=== PATIENT | female | born 1970 | race American Indian/Alaskan Native ===

== ENCOUNTER 2017-05-09 09:08 | Outpatient (CLI) | payer BC ==
--- NOTE | 2017-05-09 11:15 | Mammography Report ---
BILATERAL DIGITAL SCREENING MAMMOGRAM with CAD: 05/09/17 CLINICAL: Routine screening. COMPARISON:None available. However, a prior mammogram was apparently done at [facility]. FINDINGS: The breasts are heterogeneously dense, which may obscure small masses. Left asymmetries on MLO and exaggerated CC views require comparison with a prior mammogram or additional imaging of the left breast.No architectural distortion or suspicious calcifications.The right breast is negative. IMPRESSION: Left asymmetries requiring further evaluation. BI-RADS CATEGORY: 0 -- Additional Evaluation Required RECOMMENDATION: Comparison with a previous mammogram. We will attempt to obtain a prior mammogram from [facility]. If we do not obtain a prior mammogram for comparison within 30 days, a revised report will be issued recommending a recall for additional imaging. Please be advised that the patient should not schedule an appointment for return until adequate time (at least 2 weeks) has passed for us to obtain the prior mammogram. ACR BI-RADS MAMMOGRAPHIC CODES: 0 = Needs additional imaging evaluation; 1 = Negative; 2 = Benign; 3 = Probably benign; 4 = Suspicious; 5 = Malignant; 6 = Known biopsy-proven malignancy COMMENT: 1. Dense breast tissue, i.e., adenosis, fibrocystic changes, etc., may obscure an underlying neoplasm. 2. Approximately 10% of cancers are not detected with mammography. 3. A negative mammography report should not delay biopsy if a clinically suspicious mass is present. COMMENT: Patient follow-up letters are generated via our [facility] application.
== END 2017-05-09 09:09 | disposition home or self-care (01) ==
LOC: SPVWC 09:08
PROVIDERS: ATTEND General Practice
DX: Z12.31 Encounter for screening mammogram for malignant neoplasm of breast (principal); I10 Essential (primary) hypertension
CPT/HCPCS: 77067; G0202

== ENCOUNTER 2017-05-26 21:30 | Emergency (ER) | payer BC ==
[2017-05-26 23:06] LABS: Hematocrit 36.1 % (30.3-42.9); Hemoglobin 11.4 gm/dl (10.1-14.3); Mean Corpuscular HGB Conc 31 % (30-34); Mean Corpuscular Hemoglobin 28 pg (28-32); Mean Corpuscular Volume 88 fl (79-97); Red Blood Count 4.08 M/mm3 (3.65-5.03); White Blood Count 9.6 K/mm3 (4.5-11.0)
[2017-05-26 23:07] LABS: Basophils % (Auto) 0.9 % (0.0-1.8); Eosinophils % (Auto) 1.7 % (0.0-4.3); Platelet Count 214 K/mm3 (140-440); Red Cell Distribution Width 14.7 % (13.2-15.2)
[2017-05-26 23:39] LABS: Anion Gap 11 mmol/L; Blood Urea Nitrogen 10 mg/dL (7-17); Calcium 9.2 mg/dL (8.4-10.2); Carbon Dioxide 34 mmol/L (22-30); Chloride 98.3 mmol/L (98-107); Glucose 84 mg/dL (65-100); Potassium 3.5 mmol/L (3.6-5.0); Sodium 140 mmol/L (137-145)
[2017-05-27 00:09] LABS: Bilirubin,Urine NEG (Negative); Blood,Urine NEG (Negative); Ketones,Urine NEG (Negative); Leukocyte Esterase,Urine NEG (Negative); Mucus,Urine FEW /HPF; Nitrite,Urine NEG (Negative); Protein,Urine <15 mg/dL mg/dL (Negative)
[2017-05-27] MEDS ORDERED: ZOFRAN ODT PO ONE (02:18)
--- NOTE | 2017-05-27 02:23 | Emergency Department Report ---
ED Chest Pain HPI - General Chief Complaint: Dizziness Stated Complaint: NAUSEA/DIZZINESS Time Seen by Provider: 05/27/17 02:03 Source: patient Mode of arrival: Ambulatory Limitations: No Limitations - History of Present Illness Initial Comments: 47-year-old female presents to the emergency department complaining of chest pain. Patient states that at approximately 4 PM this afternoon, she developed dizziness with associated nausea and vomiting. Dizziness was described as room spinning. After she vomited 2 times, she began having chest pain. Her chest pain is described as a numb feeling in the upper part of her chest. His pain does not radiate. She reports mild difficulty breathing with the pain. Pain is worse with deep inspiration. Patient is continuing to complain of nausea. There are no other complaints. MD Complaint: chest pain -: Sudden, This afternoon Time: 17:00 Onset: during rest Pain Location: substernal Pain Radiation: none Severity: severe Severity scale (0 -10): 8 Quality: other ("numbness") Consistency: constant Improves With: nothing Worsens With: inspiration re: nausea, vomting, dyspnea. denies: diaphoresis Other Symptoms: other (dizziness) Treatments Prior to Arrival: none Aspirin use within the Past 7 Days: (0) No - Related Data Home Medications Medication Instructions Recorded Confirmed Last Taken Lisinopril/Hydrochlorothiazide 1 tab PO QDAY 10/24/15 12/16/15 12/15/15 21:00 [Zestoretic 20-12.5 mg] Previous Rx's Medication Instructions Recorded Last Taken Type Meclizine [Antivert] 25 mg PO TID PRN #20 tablet 05/27/17 Unknown Rx Naproxen [Naprosyn] 500 mg PO BID #30 tablet 05/27/17 Unknown Rx Promethazine [Phenergan TAB] 25 mg PO Q6HR PRN #14 tab 05/27/17 Unknown Rx Allergies Allergy/AdvReac Type Severity Reaction Status Date / Time cefuroxime axetil Allergy Shortness Verified 10/24/15 12:51 [From Ceftin] of Breath Heart Score - HEART Score History: Slightly suspicious EKG: Normal Age: 45-65 Risk factors: 1-2 risk factors Troponin: < normal limit HEART Score: 2 ED Review of Systems ROS: Stated complaint: NAUSEA/DIZZINESS Other details as noted in HPI Comment: All other systems reviewed and negative Respiratory: shortness of breath Cardiovascular: chest pain Gastrointestinal: nausea, vomiting Neurological: as per HPI (dizziness) ED Past Medical Hx - Past Medical History Previous Medical History?: Yes Hx Hypertension: Yes (Lisinopril/HCTZ) Hx Heart Attack/AMI: No Hx Seizures: No Hx Asthma: No Hx COPD: No - Surgical History Past Surgical History?: Yes Hx Cholecystectomy: Yes Additional Surgical History: x 3 - Family History Family history: no significant - Social History Smoking Status: Never Smoker Substance Use Type: None - Medications Home Medications: Home Medications Medication Instructions Recorded Confirmed Last Taken Type Lisinopril/Hydrochlorothiazide 1 tab PO QDAY 10/24/15 12/16/15 12/15/15 21:00 History [Zestoretic 20-12.5 mg] Meclizine [Antivert] 25 mg PO TID PRN #20 tablet 05/27/17 Unknown Rx Naproxen [Naprosyn] 500 mg PO BID #30 tablet 05/27/17 Unknown Rx Promethazine [Phenergan TAB] 25 mg PO Q6HR PRN #14 tab 05/27/17 Unknown Rx ED Physical Exam - General Limitations: No Limitations General appearance: alert, in no apparent distress - Head Head exam: Present: atraumatic, normocephalic - Eye Eye exam: Present: normal appearance, PERRL, EOMI - ENT ENT exam: Present: normal exam, normal orophraynx, mucous membranes moist - Neck Neck exam: Present: normal inspection, full ROM. Absent: tenderness - Respiratory Respiratory exam: Present: normal lung sounds bilaterally, chest wall tenderness (tenderness to palpation of the left upper anterior chest wall). Absent: respiratory distress - Cardiovascular Cardiovascular Exam: Present: regular rate, normal rhythm, normal heart sounds - GI/Abdominal GI/Abdominal exam: Present: soft, normal bowel sounds. Absent: distended, tenderness - Extremities Exam Extremities exam: Present: normal inspection, full ROM. Absent: tenderness - Back Exam Back exam: Present: normal inspection, full ROM. Absent: tenderness - Neurological Exam Neurological exam: Present: alert, oriented X3. Absent: motor sensory deficit - Skin Skin exam: Present: warm, dry, intact ED Course Vital Signs 05/26/17 05/27/17 05/27/17 21:40 01:45 03:42 Temperature 98 F 98.4 F Pulse Rate 68 61 Respiratory 18 18 16 Rate Blood Pressure 118/73 Blood Pressure 118/73 136/88 [Left] O2 Sat by Pulse 100 100 Oximetry ED Medical Decision Making - Lab Data Result diagrams: 05/26/17 22:03 05/26/17 22:39 - EKG Data -: EKG Interpreted by Me EKG shows normal: sinus rhythm, axis, intervals, QRS complexes, ST-T waves Rate: normal - EKG Data When compared to previous EKG there are: previous EKG unavailable Interpretation: normal EKG - Medical Decision Making Lab results reviewed and discussed with the patient. Patient reports feeling better with medications. Patient will be discharged home at this time to follow up with her primary care physician. - Differential Diagnosis vertigo, chest wall pain, atypical chest pain Critical care attestation.: If time is entered above; I have spent that time in minutes in the direct care of this critically ill patient, excluding procedure time. ED Disposition Clinical Impression: Vertigo, Chest wall pain Disposition: - TO HOME OR SELFCARE Is pt being admited?: No Condition: Stable Instructions: Chest Pain (ED), Vertigo (ED) Prescriptions: Meclizine [Antivert] 25 mg PO TID PRN #20 tablet PRN Reason: Vertigo Naproxen [Naprosyn] 500 mg PO BID #30 tablet Promethazine [Phenergan TAB] 25 mg PO Q6HR PRN #14 tab PRN Reason: Nausea Referrals: PRIMARY CARE, [Primary Care Provider] - 3-5 Days Time of Disposition: 03:57
[2017-05-27 03:43] VITALS: BP 136/88
== END 2017-05-27 04:30 | disposition home or self-care (01) ==
LOC: ED 21:30
DX: R07.89 Other chest pain (principal); R42 Dizziness and giddiness; I10 Essential (primary) hypertension; Z88.8 Allergy status to other drugs, medicaments and biological substances
CPT/HCPCS: 36415; 80048; 81001; 84484; 84703; 85025; 93005; 93010; 99283; Q0162

== ENCOUNTER 2017-08-08 10:32 | Emergency (ER) | payer BC ==
[2017-08-08] MEDS ORDERED: TYLENOL PO ONE (11:08)
[2017-08-08] MEDS ORDERED: ZOFRAN ODT PO ONE (11:08)
--- NOTE | 2017-08-08 11:10 | Emergency Department Report ---
Chief Complaint: Headache Stated Complaint: Nausea and vomiting - HPI History of Present Illness: 47F PMH htn, hx of dvt pw c/o worsenign headache, LE swelling x2-3 days, malaise - ROS Review of Systems: hx of headache and dvt - Exam Vital Signs: Vital Signs 08/08/17 11:01 Temperature 98.4 F Pulse Rate 64 Respiratory 18 Rate Blood Pressure 126/71 O2 Sat by Pulse 100 Oximetry Physical Exam: + 2-3 pitting edema both LE MSE screening note: Focused history and physical exam performed. Due to findings the following was ordered: mse: le swelling, headache, nausea 1- LE swelling, LE duplex, basic labs ED Disposition for MSE Condition: Stable
[2017-08-08] MEDS ORDERED: ZOFRAN ODT ONE (11:13)
[2017-08-08] MEDS ORDERED: TYLENOL ONE (11:13)
[2017-08-08 11:38] LABS: Basophils % (Auto) 1.2 % (0.0-1.8); Eosinophils % (Auto) 1.5 % (0.0-4.3); Hematocrit 38.2 % (30.3-42.9); Mean Corpuscular HGB Conc 31 % (30-34); Mean Corpuscular Hemoglobin 27 pg (28-32); Mean Corpuscular Volume 86 fl (79-97); Platelet Count 230 K/mm3 (140-440); Red Blood Count 4.43 M/mm3 (3.65-5.03); Red Cell Distribution Width 14.1 % (13.2-15.2); White Blood Count 6.8 K/mm3 (4.5-11.0)
[2017-08-08 12:05] LABS: Anion Gap 19 mmol/L; BUN/Creatinine Ratio 16.25; Blood Urea Nitrogen 13 mg/dL (7-17); Calcium 9.1 mg/dL (8.4-10.2); Carbon Dioxide 22 mmol/L (22-30); Chloride 104.7 mmol/L (98-107); Glucose 85 mg/dL (65-100); Potassium 3.1 mmol/L (3.6-5.0); Sodium 143 mmol/L (137-145)
[2017-08-08 19:28] LABS: Bilirubin,Urine NEG (Negative); Blood,Urine NEG (Negative); Ketones,Urine NEG (Negative); Leukocyte Esterase,Urine NEG (Negative); Mucus,Urine FEW /HPF; Nitrite,Urine NEG (Negative); Protein,Urine <15 mg/dL mg/dL (Negative); Urobilinogen,Urine < 2.0 mg/dL (<2.0)
[2017-08-08] MEDS ORDERED: K-DUR PO ONE (20:24)
--- NOTE | 2017-08-08 20:25 | Emergency Department Report ---
ED General Adult HPI - General Chief complaint: Headache Stated complaint: Nausea and vomiting Time Seen by Provider: 08/08/17 20:23 Source: patient, RN notes reviewed Mode of arrival: Ambulatory Limitations: No Limitations - History of Present Illness Initial comments: This is a 47-year-old female who was previously unknown to this provider. 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 She is not currently on systemic anticoagulation, and she is not taking any control tablets. She presents to the ER with 2 complaints. The patient's first complaint is headache. Headache is left-sided, throbbing and "thumping." It started , today is Tuesday. The headache is not of sudden or thunderclap in nature, it did not reach maximal intensity within an hour, and is not the worse headache of her life. There is no neck pain or neck stiffness, there is no sore throat, there is no loss of vision, there is no focal extremity weakness/numbness. The patient next complaints is bilateral lower extremity swelling. It is painless. There is no trauma. There is no chest pain or shortness of breath. No recent trips greater than 4 hours, no recent hospital admissions. The swelling will vary, and worsens with the patient stands up, and improves when she sits down. -: Gradual Location: head, left, right, lower extremity Severity scale (0 -10): 10 Quality: aching Consistency: intermittent Improves with: none Worsens with: none Associated Symptoms: denies other symptoms, headaches, nausea/vomiting (patient complained of nausea and vomiting with headache, this is resolved prior to my evaluation with antinausea medication.) - Related Data Home Medications Medication Instructions Recorded Confirmed Last Taken Lisinopril/Hydrochlorothiazide 25 mg PO QDAY 10/24/15 08/08/17 08/07/17 [Zestoretic 20-12.5 mg] Previous Rx's Medication Instructions Recorded Last Taken Type Acetaminophen [Tylenol Arthritis] 650 mg PO Q6HR PRN #30 tablet.er 08/08/17 Unknown Rx Ibuprofen [Motrin] 600 mg PO Q8H PRN #30 tablet 08/08/17 Unknown Rx Metoclopramide [Reglan] 10 mg PO QID PRN #30 tablet 08/08/17 Unknown Rx Allergies Allergy/AdvReac Type Severity Reaction Status Date / Time cefuroxime axetil Allergy Shortness Verified 10/24/15 12:51 [From Ceftin] of Breath ED Review of Systems ROS: Stated complaint: Nausea and vomiting Other details as noted in HPI Constitutional: denies: fever Eyes: denies: eye discharge, vision change ENT: denies: epistaxis Respiratory: denies: cough Cardiovascular: denies: chest pain Gastrointestinal: nausea, vomiting Genitourinary: denies: dysuria Musculoskeletal: back pain, arthralgia Skin: denies: lesions Neurological: headache ED Past Medical Hx - Past Medical History Hx Hypertension: Yes (Lisinopril/HCTZ) Hx Heart Attack/AMI: No Hx Seizures: No Hx Asthma: No Hx COPD: No - Surgical History Hx Cholecystectomy: Yes Additional Surgical History: x 3 - Social History Smoking Status: Never Smoker Substance Use Type: None - Medications Home Medications: Home Medications Medication Instructions Recorded Confirmed Last Taken Type Lisinopril/Hydrochlorothiazide 25 mg PO QDAY 10/24/15 08/08/17 08/07/17 History [Zestoretic 20-12.5 mg] Acetaminophen [Tylenol Arthritis] 650 mg PO Q6HR PRN #30 tablet.er 08/08/17 Unknown Rx Ibuprofen [Motrin] 600 mg PO Q8H PRN #30 tablet 08/08/17 Unknown Rx Metoclopramide [Reglan] 10 mg PO QID PRN #30 tablet 08/08/17 Unknown Rx ED Physical Exam - General Limitations: No Limitations General appearance: alert, in no apparent distress - Head Head exam: Present: atraumatic, normocephalic - Eye Eye exam: Present: normal appearance, EOMI, other (visual acuity intact to finger counting, color perception, reading at a close distance). Absent: nystagmus - ENT ENT exam: Present: normal exam, normal orophraynx, mucous membranes moist, TM's normal bilaterally, normal external ear exam, other (there is no mastoid tenderness. There is no temporal tenderness.) - Neck Neck exam: Present: normal inspection, full ROM. Absent: tenderness, meningismus - Respiratory Respiratory exam: Present: normal lung sounds bilaterally. Absent: respiratory distress, wheezes, rales, rhonchi, stridor, chest wall tenderness, accessory muscle use, decreased breath sounds, prolonged expiratory - Cardiovascular Cardiovascular Exam: Present: regular rate, normal rhythm, normal heart sounds. Absent: bradycardia, tachycardia, irregular rhythm, systolic murmur, diastolic murmur, rubs, gallop - GI/Abdominal GI/Abdominal exam: Present: soft, normal bowel sounds. Absent: distended, tenderness, guarding, rebound, rigid, pulsatile mass - Extremities Exam Extremities exam: Present: normal inspection, full ROM, normal capillary refill , pedal edema, other (2+ pitting edema is noted in the bilateral lower extremities). Absent: calf tenderness - Back Exam Back exam: Present: normal inspection, full ROM. Absent: tenderness, CVA tenderness (R), CVA tenderness (L), muscle spasm, paraspinal tenderness, vertebral tenderness - Neurological Exam Neurological exam: Present: alert, oriented X3, normal gait (there is no past- pointing. Normal [id number]. Negative Romberg examination. Negative pronator drift.), other (Extraocular movements intact. Tongue midline. No facial droop. Facial sensation intact to light touch in the V1, V2, V3 distribution bilaterally. 5 and 5 strength in 4 extremities.. Sensation is intact to light touch in 4 extremities.). Absent: motor sensory deficit - Psychiatric Psychiatric exam: Present: normal affect, normal mood - Skin Skin exam: Present: warm, dry, intact, normal color. Absent: rash ED Course Vital Signs 08/08/17 08/08/17 08/08/17 11:01 18:29 18:30 Temperature 98.4 F Pulse Rate 64 56 L 60 Respiratory 18 11 L 11 L Rate Blood Pressure 126/71 Blood Pressure [Left] O2 Sat by Pulse 100 98 Oximetry 08/08/17 08/08/17 08/08/17 18:38 18:46 19:00 Temperature 98.9 F Pulse Rate 54 L 56 L 61 Respiratory 12 18 14 Rate Blood Pressure 129/77 129/77 129/77 Blood Pressure 123/77 [Left] O2 Sat by Pulse 100 100 99 Oximetry 08/08/17 08/08/17 08/08/17 19:14 19:16 19:30 Temperature Pulse Rate 63 55 L Respiratory 18 12 11 L Rate Blood Pressure 128/73 128/73 Blood Pressure [Left] O2 Sat by Pulse 99 100 100 Oximetry 08/08/17 08/08/17 08/08/17 19:46 20:00 20:16 Temperature Pulse Rate 61 64 64 Respiratory 14 14 10 L Rate Blood Pressure 128/73 128/73 119/67 Blood Pressure [Left] O2 Sat by Pulse 100 98 100 Oximetry 08/09/17 01:56 Temperature Pulse Rate 91 H Respiratory 17 Rate Blood Pressure 119/67 Blood Pressure [Left] O2 Sat by Pulse Oximetry - Reevaluation(s) Reevaluation #1: 08/08/17 21:45 Patient is saturating well, no crackles or rales, no physical exam findings to suggest congestive heart failure. Therefore chest x-ray is not emergently required at this time. ED Medical Decision Making - Lab Data Result diagrams: 08/08/17 11:11 08/08/17 11:11 Vital Signs 08/08/17 08/08/17 08/08/17 11:01 18:29 18:30 Temperature 98.4 F Pulse Rate 64 56 L 60 Respiratory 18 11 L 11 L Rate Blood Pressure 126/71 Blood Pressure [Left] O2 Sat by Pulse 100 98 Oximetry 08/08/17 08/08/17 18:38 19:14 Temperature 98.9 F Pulse Rate 56 L Respiratory 18 18 Rate Blood Pressure Blood Pressure 123/77 [Left] O2 Sat by Pulse 100 99 Oximetry Lab Results 08/08/17 08/08/17 08/08/17 Range/Units 11:11 11:11 11:11 WBC 6.8 (4.5-11.0) K/mm3 RBC 4.43 (3.65-5.03) M/mm3 Hgb 12.0 (10.1-14.3) gm/dl Hct 38.2 (30.3-42.9) % MCV 86 (79-97) fl MCH 27 L (28-32) pg MCHC 31 (30-34) % RDW 14.1 (13.2-15.2) % Plt Count 230 (140-440) K/mm3 Lymph % (Auto) 28.1 (13.4-35.0) % Wilkin % (Auto) 5.8 (0.0-7.3) % Eos % (Auto) 1.5 (0.0-4.3) % Baso % (Auto) 1.2 (0.0-1.8) % Lymph # 1.9 (1.2-5.4) K/mm3 Wilkin # 0.4 (0.0-0.8) K/mm3 Eos # 0.1 (0.0-0.4) K/mm3 Baso # 0.1 (0.0-0.1) K/mm3 Seg Neutrophils % 63.4 (40.0-70.0) % Seg Neutrophils # 4.3 (1.8-7.7) K/mm3 Sodium 143 (137-145) mmol/L Potassium 3.1 L (3.6-5.0) mmol/L Chloride 104.7 (98-107) mmol/L Carbon Dioxide 22 (22-30) mmol/L Anion Gap 19 mmol/L BUN 13 (7-17) mg/dL Creatinine 0.8 (0.7-1.2) mg/dL Estimated GFR > 60 ml/min BUN/Creatinine Ratio 16.25 % Glucose 85 (65-100) mg/dL Calcium 9.1 (8.4-10.2) mg/dL Total Creatine Kinase 125 (30-135) units/L NT-Pro-B Natriuret Pep 270.4 (0-450) pg/mL HCG, Qual (Negative) Urine Color (Yellow) Urine Turbidity (Clear) Urine pH (5.0-7.0) Ur Specific Fenton (1.003-1.030) Urine Protein (Negative) mg/dL Urine Glucose (UA) (Negative) mg/dL Urine Ketones (Negative) mg/dL Urine Blood (Negative) Urine Nitrite (Negative) Urine Bilirubin (Negative) Urine Urobilinogen (<2.0) mg/dL Ur Leukocyte Esterase (Negative) Urine WBC (Auto) (0.0-6.0) /HPF Urine RBC (Auto) (0.0-6.0) /HPF U Epithel Cells (Auto) (0-13.0) /HPF Urine Mucus /HPF 08/08/17 08/08/17 Range/Units 12:01 18:31 WBC (4.5-11.0) K/mm3 RBC (3.65-5.03) M/mm3 Hgb (10.1-14.3) gm/dl Hct (30.3-42.9) % MCV (79-97) fl MCH (28-32) pg MCHC (30-34) % RDW (13.2-15.2) % Plt Count (140-440) K/mm3 Lymph % (Auto) (13.4-35.0) % Wilkin % (Auto) (0.0-7.3) % Eos % (Auto) (0.0-4.3) % Baso % (Auto) (0.0-1.8) % Lymph # (1.2-5.4) K/mm3 Wilkin # (0.0-0.8) K/mm3 Eos # (0.0-0.4) K/mm3 Baso # (0.0-0.1) K/mm3 Seg Neutrophils % (40.0-70.0) % Seg Neutrophils # (1.8-7.7) K/mm3 Sodium (137-145) mmol/L Potassium (3.6-5.0) mmol/L Chloride (98-107) mmol/L Carbon Dioxide (22-30) mmol/L Anion Gap mmol/L BUN (7-17) mg/dL Creatinine (0.7-1.2) mg/dL Estimated GFR ml/min BUN/Creatinine Ratio % Glucose (65-100) mg/dL Calcium (8.4-10.2) mg/dL Total Creatine Kinase (30-135) units/L NT-Pro-B Natriuret Pep (0-450) pg/mL HCG, Qual Negative (Negative) Urine Color Yellow (Yellow) Urine Turbidity Clear (Clear) Urine pH 6.0 (5.0-7.0) Ur Specific Fenton 1.024 (1.003-1.030) Urine Protein <15 mg/dl (Negative) mg/dL Urine Glucose (UA) Neg (Negative) mg/dL Urine Ketones Neg (Negative) mg/dL Urine Blood Neg (Negative) Urine Nitrite Neg (Negative) Urine Bilirubin Neg (Negative) Urine Urobilinogen < 2.0 (<2.0) mg/dL Ur Leukocyte Esterase Neg (Negative) Urine WBC (Auto) 1.0 (0.0-6.0) /HPF Urine RBC (Auto) 2.0 (0.0-6.0) /HPF U Epithel Cells (Auto) 3.0 (0-13.0) /HPF Urine Mucus Few /HPF - Radiology Data Radiology results: report reviewed interpreted by me: [facility] : 1970 [facility]# [id number] 08/08/17 11:52 - Radiology Dept. Note by SWE[facility] Num: [id number] : 1970 Patient Age: 47 VASCULAR LAB.PRELIMINARY REPORT.BLE VENOUS DUPLEX DONE.NO EVIDENCE OF DVT/SVT IN VESSELS VISUALIZED. Initialized on 08/08/17 11:52 - END OF NOTE - Medical Decision Making Differential diagnosis: Migraine headache, tension headache, cluster headache, DVT, congestive heart failure, dependent edema, venous insufficiency Assessment and plan: 47-year-old female with multiple nonemergent complaints. Lower extremity DVTs excluded through the vascular lab study. Has a GCS of 15, with an NIH score of 0, walks with a steady gait, and is clinically sober. Headache by history and physical exam does not appear to be dangerous or life-threatening, and she can follow up with an outpatient primary care doctor. The patient is encouraged to purchase compression stockings for her dependent edema. Critical care attestation.: If time is entered above; I have spent that time in minutes in the direct care of this critically ill patient, excluding procedure time. ED Disposition Clinical Impression: Headache, Swelling of lower extremity Disposition: DC-01 TO HOME OR SELFCARE Is pt being admited?: No Does the pt Need Aspirin: No Condition: Stable Instructions: Acute Headache (ED), Leg Edema (ED) Additional Instructions: Take Tylenol every 4 hours as needed for headache, this can be alternated with ibuprofen, 600 mg with food every 6 hours for headache. These medications can be taken his last purchased [id number]. Take the Reglan medication also as needed for nausea/vomiting/headache. Purchased [id number] compression stockings/pantyhose to assist with lower extremity swelling. Follow-up with the primary care doctor within the next month. Return to the ER right away with fevers, chills, chest pain, shortness of breath, intractable nausea or vomiting, inability to tolerate liquid feeds, confusion. Prescriptions: Acetaminophen [Tylenol Arthritis] 650 mg PO Q6HR PRN #30 tablet.er PRN Reason: Pain Ibuprofen [Motrin] 600 mg PO Q8H PRN #30 tablet PRN Reason: Pain Metoclopramide [Reglan] 10 mg PO QID PRN #30 tablet PRN Reason: Nausea Referrals: HAZEL BRUCE MD [Primary Care Provider] - 3-5 Days Forms: Work/School Release Form(ED)
[2017-08-08] MEDS ORDERED: REGLAN PO ONE (20:31)
[2017-08-08] MEDS ORDERED: MOTRIN PO ONE (20:31)
[2017-08-08] MEDS ORDERED: XYLOCAINE TOPICAL 4% TP ONE (20:32)
[2017-08-09 03:57] VITALS: BP 119/67
--- NOTE | 2017-08-10 07:45 | Vascular Lab Report ---
LOWER EXTREMITY VENOUS DUPLEX: REASON FOR EXAM: Swelling of the lower extremities. COMMENTS ON THE RIGHT: All veins visualized are freely compressible without evidence of internal echogenicity. Flow is spontaneous and phasic throughout. COMMENTS ON THE LEFT: All veins visualized are freely compressible without evidence of internal echogenicity. Flow is spontaneous and phasic throughout. IMPRESSION: No evidence of acute or chronic deep venous thrombosis in either lower extremity.
== END 2017-08-09 00:30 | disposition home or self-care (01) ==
LOC: ED 10:32
DX: R51 Headache (principal); R22.41 Localized swelling, mass and lump, right lower limb; R22.42 Localized swelling, mass and lump, left lower limb; I10 Essential (primary) hypertension; Z88.8 Allergy status to other drugs, medicaments and biological substances
CPT/HCPCS: 36415; 80048; 81001; 82550; 83735; 83880; 84703; 85025; 93970; Q0162

== ENCOUNTER 2021-07-14 05:51 | Observation (INO) | payer BC ==
--- NOTE | 2021-07-13 10:08 | Anesthesia Consultation ---
Anesthesia Consult and Med Hx Date of service: 07/13/21 - Airway Anesthetic Teeth Evaluation: Good ROM Head & Neck: Adequate Mental/Hyoid Distance: Adequate Mallampati Class: Class III Intubation Access Assessment: Possibly Difficult - Pulmonary Exam CTA: Yes - Cardiac Exam Cardiac Exam: RRR - Pre-Operative Health Status ASA Pre-Surgery Classification: ASA3 Proposed Anesthetic Plan: General Nerve Block: post op TAP if needed - Pulmonary Hx Smoking: No Hx Respiratory Symptoms: No Hx Sleep Apnea: Yes (occasional CPAP) - Cardiovascular System Hx Hypertension: Yes Hx Heart Attack/AMI: No Hx Percutaneous Transluminal Coronary Angioplasty (PTCA): No Hx Cardia Arrhythmia: No Hx Peripheral Vascular Disease: No (hx DVT/PE 2009, 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
[2021-07-13 10:29] LABS: Hematocrit 32.5 % (30.3-42.9); Hemoglobin 10.5 gm/dl (10.1-14.3); Mean Corpuscular HGB Conc 32 % (30-34); Mean Corpuscular Volume 79 fl (79-97); Platelet Count 226 K/mm3 (140-440); Red Blood Count 4.11 M/mm3 (3.65-5.03); Red Cell Distribution Width 17.6 % (13.2-15.2)
[2021-07-13 10:49] LABS: BUN/Creatinine Ratio 11; Blood Urea Nitrogen 11 mg/dL (7-17); Calcium 9.3 mg/dL (8.4-10.2); Hemolysis Index 4
[2021-07-13 13:37] LABS: Hypochromasia 1+; Large Platelets Rare; Platelet Estimate Consistent w Auto; Total Cells Counted 100
[2021-07-14] MEDS ORDERED: CELECOXIB 200 MG CAP PO NR (06:00)
[2021-07-14] MEDS ORDERED: MIDAZOLAM 2 MG/2 ML INJ IV NR (06:00)
[2021-07-14] MEDS ORDERED: ACETAMINOPHEN 500 MG TAB PO SCH (06:00)
[2021-07-14] MEDS ORDERED: SCOPOLAMINE TRANSDERMAL PATCH 72 HR TD NR (06:00)
[2021-07-14] MEDS ORDERED: GABAPENTIN 300 MG CAP PO NR (06:00)
[2021-07-14] MEDS: LACTATED RINGERS 1,000 ML IV SCH ×2 (07:15→17:51)
[2021-07-14] MEDS ORDERED: propofoL 200 MG/20 ML VIAL IV ONE (07:24)
[2021-07-14] MEDS ORDERED: HYDROmorphone 1 MG/1 ML INJ ONE (07:24)
[2021-07-14] MEDS ORDERED: ROCURONIUM 50 MG/5 ML INJ IV ONE ×2 (07:24→10:11)
[2021-07-14] MEDS ORDERED: LIDOCAINE MPF (2%) 20 MG/1 ML VIAL 5 ML ONE (07:24)
[2021-07-14] MEDS ORDERED: ONDANSETRON 4 MG/2 ML INJ ONE (07:24)
[2021-07-14] MEDS ORDERED: HYDROmorphone 1 MG/1 ML INJ IV PRN (07:37)
[2021-07-14] MEDS ORDERED: ONDANSETRON 4 MG/2 ML INJ IV PRN ×2 (07:37→11:37)
--- NOTE | 2021-07-14 07:37 | Anesthesia Day of Surgery ---
Anesthesia Day of Surgery - Day of Surgery Patient Examined: Yes Patient H&P Reviewed: Yes Patient is NPO: Yes
[2021-07-14] MEDS ORDERED: SODIUM CHLORIDE 0.9% IRR 1,500 ML BOTTLE IR ONE (08:35)
[2021-07-14] MEDS ORDERED: WATER FOR IRRIG STERILE 2000 ML IR ONE (08:35)
[2021-07-14] MEDS ORDERED: SODIUM CHLORIDE 0.9% IRRIG SOLN 2000 ML IR ONE (09:00)
[2021-07-14] MEDS ORDERED: dexAMETHasone 20 MG/5 ML VIAL ONE (10:00)
[2021-07-14] MEDS ORDERED: LACTATED RINGERS 1,000 ML ONE (10:00)
[2021-07-14] MEDS ORDERED: GLYCOPYRROLATE 0.4 MG/2 ML INJ ONE (11:23)
[2021-07-14] MEDS ORDERED: NEOSTIGMINE 10MG/10 ML INJ MDV ONE (11:23)
[2021-07-14] MEDS ORDERED: KETOROLAC 30 MG/1 ML INJ ONE (11:29)
[2021-07-14] MEDS ORDERED: HYDROcodone/ACETAMINOPHEN 5-325 MG TAB PO PRN ×2 (11:37→12:06)
[2021-07-14] MEDS ORDERED: MORPHINE 4 MG/1 ML INJ IV PRN ×2 (11:37→12:06)
[2021-07-14] MEDS ORDERED: ACETAMINOPHEN 325 MG TAB PO PRN ×2 (11:37→12:06)
[2021-07-14] MEDS ORDERED: KETOROLAC 30 MG/1 ML INJ IV PRN ×2 (11:37→12:06)
[2021-07-14] MEDS ORDERED: IBUPROFEN 800 MG TAB PO PRN ×2 (11:37→12:06)
--- NOTE | 2021-07-14 11:52 | Operative Report ---
Operative Report Operative Report: Date of surgery: July 14, 2021 Admitting diagnosis: [Pelvic pain, abnormal uterine bleeding, enlarged uterus, peritoneal adhesions.] Postoperative diagnoses: Same. Peritoneal adhesions were limited to the area of the lower uterine segment and only made separation between the bladder and the uterus a bit of a challenge Procedure: Laparoscopically assisted vaginal hysterectomy, Bilateral Salpingo- oophorectomies, cystoscopy. Surgeon: Baltazar Goldstein MD Anesthesiologist: Marissa Zarco MD Ruby [employer] Rails Software Developer: Darrel Seymour CRNA Anesthesia: Gen. anesthesia EBL: 400 mL Complications: None Findings:Intraperitoneally, the fallopian tubes were noted to have been disrupted at a prior surgical session. Both ovaries were grossly normal. The uterus was bulky in size. The liver and the undersurface of the diaphragm were grossly normal. There were no other abnormalities observed within the peritoneal cavity. The vulva vagina and cervix were grossly normal. Procedure in details: The patient was taken to the operating room and was given a general anesthesia. The patient was then put in the lithotomy position and prepped in the vulva vagina and abdomen. The drapes were placed. A timeout was done. With the go ahead from the director of managed care, an indwelling Mari catheter was inserted. The cervix was stabilized with a single-tooth tenaculum forceps and an acorn,. At the navel, a stab incision was made. The Veress needle was inserted, making sure to point the tip of this instrument into the free hollow of the pelvis. The Veress needle was initially aspirated and no blood was drawn. The Veress needle was then flushed through with a small quantity of sterile normal saline without any resistance. The general peritoneal cavity was thereafter insufflated with 3.5 L of carbon dioxide. A 5 mm port with its trocar were inserted making sure again to point the tip of this instrument towards the free hollow of the pelvis. The laparoscope confirmed successful access to the peritoneal cavity subsequently. 2 additional 5 mm ports were placed one for each flank under guidance with the laparoscope. A general examination of the peritoneal cavity was done. The findings are reported above. The endoscopic ligasure was used to excise the the ovaries from the infundibulopelvic ligaments. The broad ligament was then divided from the round ligaments and close to the lateral aspects of the uterus all the way to the top of the cervix. The fallopian tubes remnants were included in the excised specimen. This was done for both sides. The J-hook Bovie was used to thermally coagulate the utero peritoneal flap over the cervix. This allowed the bladder to be displaced distally with the blunt probe. The procedure continued vaginally. The acorn cannula was removed. A circumferential incision was made in the ecto cervix distal to the palpated reflection of the urinary bladder. The bladder was then bluntly dissected off of the cervix using the Kitner. The anterior colpotomy was easily established allowed an angled retractor to be placed within the opening. The posterior colpotomy was established by cutting into the posterior cul-de-sac with the Steve's scissors. The blade of the weighted vaginal speculum was placed into the posterior colpotomy. The Enseal Ligasure was then used to thermally coagulate and divide the remaining attachments of the uterus to the pelvic sidewall. Specimen was, cut up in two pieces to aid extraction, removed and secured for histopathology. The vagina was sewn with a running suture of #0 Vicryl having achieved satisfactory hemostasis. The vagina vault was subsequently closed with figure of 8 suture of 0 Vicryl. Cystoscopy was done. The patient was given 50 mg of methylene blue. Both ureteric orifices were seen with urine ejecting from both. The urine was clear. There was no injuries to the bladder wall. Intraperitoneally, there was no extravasation of urine into the peritoneal cavity. There was no bleeding within the peritoneal cavity. The pneumoperitoneum was deflated after inspecting the access points using the laparoscope. All instruments were withdrawn. The 3 stab incisions were sealed with Dermabond. All sponges and instruments were accounted for. There were no complications. The estimated blood loss was 400 mL. The patient tolerated the procedure well and was transferred to the recovery room in very good condition.
--- NOTE | 2021-07-14 16:08 | Post Anesthesia Evaluation ---
- Post Anesthesia Evaluation Patient Participated: Yes Airway Patent: Yes Stable Respiratory Function: Yes Nausea/Vomiting: No Temp > 96.8F: Yes Pain Manageable: Yes Adequeate Hydration: Yes Anesthesia Complications: No
[2021-07-14] MEDS: CLINDAMYCIN 600 MG/50 mL 600 MG/50 ML BAG IV SCH (18:33)
[2021-07-14] MEDS: HEPARIN 5,000 UNIT/1 ML VIAL SUB-Q SCH (21:48)
[2021-07-15] MEDS: CLINDAMYCIN 600 MG/50 mL 600 MG/50 ML BAG IV SCH (00:17)
[2021-07-15 06:12] LABS: Hematocrit 26.9 % (30.3-42.9); Hemoglobin 8.4 gm/dl (10.1-14.3)
[2021-07-15] MEDS ORDERED: dilTIAZem CD 180 MG CAP PO SCH (10:00)
[2021-07-15] MEDS: HEPARIN 5,000 UNIT/1 ML VIAL SUB-Q SCH (10:26)
[2021-07-15 10:29] VITALS: BP 126/70
--- NOTE | 2021-07-15 11:53 | Progress Note ---
Assessment and Plan - Patient Problems (1) Status post laparoscopic assisted vaginal hysterectomy Current Visit: Yes Status: Acute Plan to address problem: Patient was alert. Surgery discussed fully. Stable and ready for home. Subjective Date of service: 07/15/21 Principal diagnosis: Status post LAVH day 1 Interval history: LAVH and cystoscopy were done 07/14/21. No complications were encountered. Objective - Constitutional Vitals: Vital Signs - 12hr 07/15/21 07/15/21 07/15/21 04:37 07:44 08:55 Temperature 98.0 F 98.7 F Pulse Rate 99 H 103 H Respiratory 20 20 Rate Blood Pressure 112/62 134/73 O2 Sat by Pulse 96 100 99 Oximetry 07/15/21 10:23 Temperature Pulse Rate 99 H Respiratory Rate Blood Pressure 126/70 O2 Sat by Pulse Oximetry General appearance: Present: no acute distress, well-nourished - EENT Eyes: PERRL - Respiratory Respiratory effort: normal Extremities: no ischemia, Full ROM - Gastrointestinal General gastrointestinal: Present: non-tender, normal bowel sounds - Genitourinary Female genitourinary: deferred - Labs CBC & Chem 7: 07/15/21 05:36 07/13/21 09:20 Labs: Abnormal lab results 07/15/21 Range/Units 05:36 Hgb 8.4 L (10.1-14.3) gm/dl Hct 26.9 L (30.3-42.9) % Medications & Allergies - Medications Allergies/Adverse Reactions: Allergies cefuroxime axetil [From Ceftin] Allergy (Verified 07/10/21 18:02) Shortness of Breath Home Medications: Home Medications Medication Instructions Recorded Confirmed Last Taken Type Aspirin [Adult Aspirin] 81 mg PO DAILY 07/10/21 07/14/21 07/08/21 09:00 History Spironolactone [Aldactone] 100 mg PO QDAY 07/10/21 07/10/21 Unknown History dilTIAZem HCl [Diltiazem 24Hr ER 180 mg PO DAILY 07/10/21 07/14/21 07/14/21 05:00 History (Cd)] Active Medications: Generic Name Dose Route Start Last Admin Trade Name Freq PRN Reason Stop Dose Admin Acetaminophen 650 mg 07/14/21 12:06 Acetaminophen 325 Mg Tab PO Q4H PRN Pain, Mild (1-3) Hydrocodone Bitart/Acetaminophen 2 each 07/14/21 12:06 Hydrocodone/Acetaminophen 5-325 Mg Tab PO Q6H PRN Pain, Moderate (4-6) Diltiazem HCl 180 mg 07/15/21 10:00 07/15/21 10:23 Diltiazem Cd 180 Mg Cap PO 180 mg DAILY KAREEM Administration Heparin Sodium (Porcine) 5,000 unit 07/14/21 22:00 07/15/21 10:26 Heparin 5,000 Unit/1 Ml Vial SUB-Q 5,000 unit Q12HR KAREEM Administration Ibuprofen 800 mg 07/14/21 12:06 Ibuprofen 800 Mg Tab PO Q8H PRN Pain, Moderate (4-6) Ketorolac Tromethamine 30 mg 07/14/21 12:06 07/14/21 21:41 Ketorolac 30 Mg/1 Ml Inj IV 07/19/21 12:05 30 mg Q6H PRN Administration Pain, Moderate (4-6) Morphine Sulfate 4 mg 07/14/21 11:37 Morphine 4 Mg/1 Ml Inj IV Q4H PRN Pain , Severe (7-10) Morphine Sulfate 4 mg 07/14/21 12:06 Morphine 4 Mg/1 Ml Inj IV Q4H PRN Pain , Severe (7-10) Ondansetron HCl 4 mg 07/14/21 11:37 Ondansetron 4 Mg/2 Ml Inj IV Q8H PRN Nausea And Vomiting
--- NOTE | 2021-07-15 11:57 | Discharge Summary ---
Providers - Providers Date of Admission: 07/14/21 12:06 Date of discharge: 07/15/21 Attending physician: MENDEZ GREEN MD Primary care physician: KASSANDRA ALONSO MD Hospitalization Reason for admission: other ([facility]) Incision: normal, dry, intact Condition at discharge: Good Disposition: 01 HOME / SELF CARE / HOMELESS - Discharge Diagnoses (1) Status post laparoscopic assisted vaginal hysterectomy Status: Acute Plan - Provider Discharge Summary Activity: routine, no sex for 6 weeks, no heavy lifting 4 weeks, no strenuous exercise Diet: routine Instructions: routine Additional instructions: [] Smoking cessation referral if applicable(refer to patient education folder for contact #) [] Refer to [facility] Book[facility] Call your doctor immediately for: * Fever > 100.5 * Heavy vaginal bleeding ( >1 pad per hour) * Severe persistent headache * Shortness of breath * Reddened, hot, painful area to leg or breast * Drainage or odor from incision. * Keep incision clean and dry at all times and follow doctor's instructions regarding bathing/showering - Follow up plan Follow up: PRIMARY MD CELESTE [Primary Care Provider] - 7 Days
== END 2021-07-15 14:00 | disposition home or self-care (01) ==
LOC: OR 05:51 → OB 12:06
PROVIDERS: ADMIT Obstetrics & Gynecology; ATTEND Obstetrics & Gynecology
DX: N93.9 Abnormal uterine and vaginal bleeding, unspecified (principal); D50.0 Iron deficiency anemia secondary to blood loss (chronic); N85.2 Hypertrophy of uterus; Z98.891 History of uterine scar from previous surgery
CPT/HCPCS: 36415; 58554; 80048; 84703; 85014; 85018; 85025; 86850; 86900; 86901; 88307; 96365; 96366; 96372; 96375; A4217; G0378; J1100; J1170; J1644; J1885; J2250; J2405; J2704; J2710; J7120; 85007